=== PATIENT | female | born 1985 | race Caucasian/White ===

== ENCOUNTER 2019-02-20 22:43 | Emergency (ER) | payer OTHER ==
[~2019-02-20] VITALS: Ht 165.1 cm; Wt 99.5 kg
[~2019-02-20 22:43] MED LIST: NITR-58 PO; PHEN-537 PO
[2019-02-20 22:45] VITALS: Ht 165.1 cm; Wt 99.5 kg
[2019-02-21 02:25] VITALS: BP 148/109; PULSE 104; RESP 20
[2019-02-21] MEDS ORDERED: CEFTRIAXONE 1 GM INJ IM ONE (02:30)
[2019-02-21] MEDS ORDERED: LIDOCAINE 1% (MDV) 20 ML INJ SC ONE (02:30)
== END 2019-02-21 02:30 | disposition home or self-care (01) ==
LOC: FTE 22:43
DX: N39.0 Urinary tract infection, site not specified (principal); I10 Essential (primary) hypertension
CPT/HCPCS: 36415; 81001; 81025; 85025; 96372; 99284; J0696